=== PATIENT | male | born 1995 | race African-American/Black ===

== ENCOUNTER 2017-06-10 10:43 | Emergency (ER) | payer OTHER ==
[~2017-06-10] VITALS: Ht 188 cm; Wt 88.5 kg
[2017-06-10] MEDS ORDERED: CYCLOBENZAPRINE5 MG PO (11:51)
[2017-06-10] MEDS ORDERED: MOBIC7.5 MG PO (11:51)
[2017-06-10 11:57] VITALS: BP 125/72
== END 2017-06-10 11:52 | disposition home or self-care (01) ==
LOC: ER 10:43
DX: S30.0XXA Contusion of lower back and pelvis, initial encounter (principal); F17.210 Nicotine dependence, cigarettes, uncomplicated; W18.39XA Other fall on same level, initial encounter; Y93.89 Activity, other specified; Y92.89 Other specified places as the place of occurrence of the external cause; Y99.8 Other external cause status